=== PATIENT | male | born 1980 | race Two or more races ===

== ENCOUNTER 2019-10-16 00:12 | Observation (INO) | payer SELFPAY ==
--- OUTSIDE RECORDS SUMMARY | 2019-10-17 00:23 | XMS REPORT ---
Author Author [facility] Address Unknown Phone Unavailable Care Team Providers Care Label Coder Name Role Phone Unavailable Unavailable Payers Payer Name Policy Type Policy Number Effective Date Expiration Date Problems This patient has no known problems. Allergies, Adverse Reactions, Alerts Allergy Name Allergy Type Status Severity Reaction(s) Onset Date Inactive Date Treating Clinician Comments tramadol DA Active [place] 2019-10-05 00:00:00 ketorolac DA Active [place] 2019-10-05 00:00:00 Medications This patient has no known medications.
[2019-10-17] MEDS ORDERED: SODIUM CHLORIDE FLUSH 10 ML SYR INJ PRN (00:30)
--- NOTE | 2019-10-17 00:58 | NUR ---
Patient asking for home medications. RN explained that patient will be on NPO as ordered by Isabella BUTLER. Patient states he wants to go home if he cannot take his medications and he will see PCP tomorrow, Isabella [employer] notified. AMA signed by Patient.
== END 2019-10-17 01:01 | disposition left against medical advice (07) ==
LOC: MED/SURG3 10-17 00:17
PROVIDERS: ADMIT Internal Medicine; ATTEND Internal Medicine
DX: K92.2 Gastrointestinal hemorrhage, unspecified (principal); J98.11 Atelectasis; N20.0 Calculus of kidney; M48.58XA Collapsed vertebra, not elsewhere classified, sacral and sacrococcygeal region, initial encounter for fracture; K50.90 Crohn's disease, unspecified, without complications; G40.909 Epilepsy, unspecified, not intractable, without status epilepticus; Z85.841 Personal history of malignant neoplasm of brain
CPT/HCPCS: G0378

== ENCOUNTER 2021-04-04 18:26 | Emergency (ER) | payer SELFPAY ==
[~2021-04-04] VITALS: Ht 175.3 cm; Wt 72.6 kg
[2021-04-04] MEDS ORDERED: ONDANSETRON HCL INJ 2MG/ML 2ML 2 MG/ML VIAL IV STA (20:39)
[2021-04-04] MEDS ORDERED: MORPHINE SULFATE INJ 2 MG/ML SYR IV STA (20:39)
[2021-04-04] MEDS ORDERED: HEPARIN SOD (PORCINE) 5,000 UNIT/ML VIAL IV ONE (20:45)
[2021-04-04] MEDS ORDERED: HEPARIN 25,000 UNIT 1,300 UNIT in DEXTROSE 5% 250ML 250 ML IV SCH (20:45)
[2021-04-04] MEDS ORDERED: ENOXAPARIN INJ 80 MG/0.8 ML SYR SC ONE (21:15)
[2021-04-04] MEDS ORDERED: HEPARIN 25,000 UNIT DRIP IV ONE (21:41)
[2021-04-04 21:42] LABS: INR 0.94; PROTHROMBIN TIME 13.2 seconds (11.9-14.5)
[2021-04-04 21:43] LABS: PARTIAL THROMBOPLASTIN TIME 32.6 seconds (23.8-35.5)
[2021-04-04 21:46] LABS: ALANINE AMINOTRANSFERASE 11 IU/L (0-55); ALBUMIN 3.3 g/dL (3.5-5.0); ALKALINE PHOSPHATASE 81 IU/L (40-150); ANION GAP 13.9 mmol/L (8-16); BASOPHILS % 0.6 % (0.0-1.0); BLOOD UREA NITROGEN 11 mg/dL (7-26); BUN/CREATININE RATIO 15 (6-25); CALCIUM 8.8 mg/dL (8.4-10.2); CARBON DIOXIDE 26 mmol/L (22-29); CHLORIDE 107 mmol/L (98-107); CREATININE, SERUM 0.72 mg/dL (0.72-1.25); EOSINOPHILS # (AUTO) 0.1 (0.0-0.4); EOSINOPHILS % 1.8 % (0.0-6.0); EST GLOMERULAR FILTRATION RATE > 60 ML/MIN (60-); GLUCOSE 80 mg/dL (74-118); HEMATOCRIT 29.7 % (38.2-49.6); HEMOGLOBIN 9.1 g/dL (14.0-18.0); LYMPHOCYTES # (AUTO) 0.8 (1.0-3.2); LYMPHOCYTES % 11.7 % (18.0-39.1); MEAN CORPUSCULAR HEMOGLOBIN 27.8 pg (28-32); MEAN CORPUSCULAR HGB CONC 30.6 g/dL (31-35); MEAN CORPUSCULAR VOLUME 90.8 fL (81-99); MONOCYTES # (AUTO) 0.8 (0.2-0.8); MONOCYTES % 11.6 % (4.4-11.3); NEUTROPHILS # (AUTO) 4.9 (2.1-6.9); PLATELET COUNT 320 x10e3/uL (140-360); POTASSIUM 4.9 mmol/L (3.5-5.1); RED BLOOD COUNT 3.27 x10e6/uL (4.3-5.7); RED CELL DISTRIBUTION WIDTH 15.9 % (11.7-14.4); SODIUM 142 mmol/L (136-145)
[2021-04-04] MEDS ORDERED: SODIUM CHLORIDE 0.9% 50ML 50 ML ONE (21:59)
[2021-04-04] MEDS ORDERED: DIPHENHYDRAMINE HCL INJ 50 MG/ML VIAL ONE (21:59)
[2021-04-04] MEDS ORDERED: DIPHENHYDRAMINE HCL INJ 50 MG/ML VIAL IV ONE (22:00)
== END 2021-04-04 23:00 | disposition other institution (70) ==
LOC: EDSEX 18:26 → ER 18:36
DX: I82.411 Acute embolism and thrombosis of right femoral vein (principal); G40.909 Epilepsy, unspecified, not intractable, without status epilepticus; F41.9 Anxiety disorder, unspecified; M54.9 Dorsalgia, unspecified; G89.29 Other chronic pain; Z85.89 Personal history of malignant neoplasm of other organs and systems; Z20.822 Contact with and (suspected) exposure to COVID-19
CPT/HCPCS: 36415; 80053; 85025; 85610; 85730; 93971; 99284; J1200; J1650; J2270; J2405; U0002; J1644